=== PATIENT | male | born 1965 | race Caucasian/White ===

== ENCOUNTER 2021-01-03 03:16 | Day surgery (SDC) | payer BC, SELFPAY ==
[2021-01-03] VITALS (25 sets, daily range): BP systolic 135–231; BP diastolic 65–89; PULSE 43–63; RESP 11–21; TEMP 36–36.4; O2SAT 93–100
--- NOTE | ~2021-01-03 | CT_ITS ---
EXAMINATION: CT abdomen pelvis wo con DATE: 01/03/2021 03:46 INDICATION: Bilateral flank pain. TECHNIQUE: Computed tomography (CT) of the abdomen and pelvis was performed without intravenous contr ast. Automated exposure control and iterative reconstruction technique were employed. The dose-length product was 1642.75 mGy-cm. COMPARISON: CT abdomen and pelvis 01/30/18 FINDINGS: The visualized portions of the lung bases demonstrate minimal atelectasis on the left. No p leural effusion. The heart size is normal. There are coronary artery calcifications. No pericardial e ffusion. There are surgical changes of the stomach. There is a small sliding hiatal hernia. The liver is normal. The gallbladder is absent. The spleen, pancreas, and adrenal glands are normal. There is a 4 mm stone in the bulbar urethra. The bladder is distended. There is mild bilateral hydronephrosis and hydroureter. The prostate is mildly enlarged. There are no dilated loops of bowel. The appendix i s normal. There are no pathologically enlarged lymph nodes. There is no free intraperitoneal fluid. T here is a splenorenal portacaval shunt. There are old healed bilateral rib fractures. There are chron ic bilateral L5 pars defects. There is 9 mm anterolisthesis of L5 on S1. There is moderate lumbar spo ndylosis. There are bridging endplate osteophytes at multiple levels in the thoracic spine, consisten t with diffuse idiopathic skeletal hyperostosis (DISH). IMPRESSION: 1. 4 mm stone in the bulbar urethra. Distended bladder with mild bilateral hydronephrosis and hydrou reter. Reviewed, dictated and finalized at location A. IMPRESSION: 1. 4 mm stone in the bulbar urethra. Distended bladder with mild bilateral hyd ronephrosis and hydroureter.
--- NOTE | ~2021-01-03 | XR_ITS ---
EXAMINATION: XR fluoroscopy no charge EXAM DATE: 01/03/2021 12:48 INDICATION: Urethral dilation, catheter placement. TECHNIQUE: Fluoroscopy used during XR fluoroscopy no charge performed by Dr. Katty Esquivel MD. T he DAP for this procedure [id number]. FINDINGS: Urethra cannulated, dilated and a catheter identified in position. Correlate with procedu re note. IMPRESSION: Fluoroscopy used during urethral dilation, catheter placement. Reviewed, dictated and finalized at location A.
--- NOTE | 2021-01-03 03:40 | ED.GENADULT ---
HPI - General Adult General Chief complaint: Abdominal Pain Stated complaint: kidney stone Time Seen by Provider: 01/03/21 03:29 History of Present Illness HPI narrative: Patient 55-year-old gentleman who presents the emergency department with chief complaint of flank pain and inability to urinate. Patient reports he has history of kidney stones and states that he feels like he is passing a kidney stone. The patient reports he has had history of stones that it made it into his bladder but gets stuck at the urethra as he has a prior surgical procedure on his urethra that makes it more narrowed. The patient states that right now it feels as though he has a stone stuck right at the entrance to his urethra and states that his headache have a catheter placed before then sees urology for a cystoscopy. Related Data Allergies Allergy/AdvReac Type Severity Reaction Status Date / Time No Known Allergies Allergy Verified 01/03/21 03:21 Review of Systems Review of Systems: Narrative: A 10 system review of systems was completed on the patient and is negative except for what is stated in the HPI. Nursing and ancillary documentation was reviewed. PMFSH Past Medical History Medical History Elevated PSA Impaired fasting glucose Knee pain Obesity Reactive airway disease Family History Family History Mother Hypertension Family history of heart disease in male family member before age 55 Diabetes mellitus Family history of cardiovascular disease Father Family history of arthritis Family history of malignant neoplasm of testis Family history of malignant neoplasm Grandparent Family history of malignant neoplasm Other Cerebrovascular accident Family history of mental disorder Social History Social History Smoking status: Former smoker Alcohol intake: never Exam Narrative: Exam Narrative: GENERAL: Well-appearing, well-nourished, and in no acute distress. HEAD: Normocephalic, atraumatic. EYES: PERRLA and EOMI. ENT: Nares clear, no rhinorrhea or epistaxis. Mucous membranes moist. NECK: Supple. CHEST: Clear to auscultation. No respiratory distress. HEART: Regular rate and rhythm. No murmur heard. Normal peripheral pulses. ABDOMEN: Soft, nontender, nondistended, normal active bowel sounds. EXTREMITIES: Normal range of motion. No edema. SKIN: Warm, dry, no rash. NEURO: No focal deficits. Alert and oriented x3. PSYCH: Normal mood and affect. Course Course Emergency Course: Patient's bladder scanner showed greater than 600 mils of urine in his bladder. CT scan of the abdomen pelvis showed no evidence of obstructing kidney stone Attempt to place a Cuevas catheter was initially performed by the nurse without success I have attempted to place a catheter without success Vital Signs Vital signs: Vital Signs Temperature 36.2 C L 01/03/21 03:18 Pulse Rate 63 01/03/21 03:18 Respiratory Rate 16 01/03/21 03:18 Blood Pressure 231/89 H 01/03/21 03:18 Pulse Oximetry 100 01/03/21 03:18 Temperature 36.2 C L 01/03/21 03:18 Pulse Rate 59 L 01/03/21 06:46 Respiratory Rate 19 01/03/21 06:46 Blood Pressure 185/73 H 01/03/21 06:46 Pulse Oximetry 99 01/03/21 06:46 Medical Decision Making Vital Signs Vital Signs: Vital Signs Temperature 36.2 C L 01/03/21 03:18 Pulse Rate 63 01/03/21 03:18 Respiratory Rate 16 01/03/21 03:18 Blood Pressure 231/89 H 01/03/21 03:18 Pulse Oximetry 100 01/03/21 03:18 Temperature 36.2 C L 01/03/21 03:18 Pulse Rate 59 L 01/03/21 06:46 Respiratory Rate 19 01/03/21 06:46 Blood Pressure 185/73 H 01/03/21 06:46 Pulse Oximetry 99 01/03/21 06:46 Lab Data Result diagrams: 01/03/21 03:35 01/03/21 03:35 Labs: Lab Results
[2021-01-03 03:42] LABS: Basophils Absolute Auto 0.1 K/mm3 (0.0-0.1); Basophils Percent Auto 0.6 % (0.2-1.2); Eosinophils Absolute Auto 0.3 K/mm3 (0-0.3); Eosinophils Percent Auto 3.6 % (0-4.4); Hematocrit 30.3 % (42.0-52.0); Immature Granulocyte Absolute 0.01 K/mm3 (0.00-0.031); Immature Granulocyte Percent A 0.1 % (0-0.5); Lymphocytes Absolute Auto 2.77 K/mm3 (0.9-3.2); Lymphocytes Percent Auto 32.9 % (18.3-44.2); Mean Corpuscular HGB Conc 29.7 g/dl (32-36); Mean Corpuscular Hemoglobin 22.9 pg (26-34); Mean Corpuscular Volume 77.1 fl (80-100); Mean Platelet Volume 9.4 fl (7.4-10.4); Monocytes Percent Auto 11.9 % (2.6-8.5); Neutrophils Absolute Auto 4.3 K/mm3 (1.3-6.7); Neutrophils Percent Auto 50.9 % (45.5-73.1); Platelet Count Result 422 k/mm3 (150-375); Red Blood Count 3.93 M/mm3 (4.6-6.20); Red Cell Distribution Width 17.1 % (11.5-14.5); White Blood Count 8.4 K/mm3 (4.5-10.0)
[2021-01-03] MEDS: SODIUM CHLORIDE 0.9% IV 1,000 ML 999 ML IV CONT ×2 (03:48→05:07)
[2021-01-03] MEDS: KETOROLAC 30 MG/ML VIAL (*BKC) 15 MG IV PUSH (03:50)
[2021-01-03] MEDS: ONDANSETRON INJ 4 MG/2 ML VIAL IV PUSH (03:52)
[2021-01-03 03:53] LABS: Alanine Aminotransferase 19 U/L (4-50); Albumin Level 4.2 g/dL (3.5-5.1); Alkaline Phosphatase 93 U/L (38-126); Anion Gap 6 mmol/L (8-16); Aspartate Amino Transferase 34 U/L (17-59); Bilirubin,Total 0.3 mg/dL (0.2-1.3); Blood Urea Nitrogen 15 mg/dL (9-20); Calcium 8.6 mg/dL (8.4-10.2); Carbon Dioxide 27 mmol/L (22-30); Chloride 108 mmol/L (98-107); Estimated CRCL calculation 138 ml/min; Estimated Glomerular Filt Rate > 60; Glucose 99 mg/dL (75-110); Potassium 4.4 mmol/L (3.4-5.0); Sodium 141 mmol/L (137-145)
[2021-01-03] MEDS: MORPHINE SULFATE (*CRX) 4 MG/ML INJ IV PUSH ×3 (03:53→06:48)
--- NOTE | 2021-01-03 06:57 | WPDURCON ---
Assessment and Plan Assessment and plan (1) Acute urinary obstruction: Code(s): N13.9 - Obstructive and reflux uropathy, unspecified Status: Acute Assessment and Plan: This is a very pleasant 55-year-old gentleman with a history of urethral stricture who appears to have a calculus obstructing his narrowed bulbar urethra. -I discussed options, risks and alternatives were discussed with the patient and his . The patient will proceed to the operating room today for cystoscopy, urethral dilation and possible stone removal, and Cuevas catheter insertion. Risks of the procedure include but limited to infection, bleeding, pain, injury to surrounding structures, inability to place catheter can be for additional procedures discussed. Patient understands, had time to ask questions and agrees to proceed Urology Consult Note HPI Date Seen: 01/03/21 Primary Care Provider: James Hugo MD Consult Narrative Narrative: Pipo Mcintyre is a 55 year old male with a history of pediatric urethral reconstruction. He has a history of recurring urethral strictures. The patient also has a history of nephrolithiasis. The patient presents to the emergency department with abdominal pain. He was found to be in urinary retention. The emergency department attempted to place a Cuevas catheter unsuccessfully. Urology was called to evaluate the patient. Upon my inspection of his CT scan the patient does have a distended bladder and appears to have a urethral calcification. Currently the patient is able to void with a dribble, however feels that his bladder is still full. He denies nausea vomiting fevers or chills. Denies chest pain shortness of breath. Review of Systems Review of Systems: All systems reviewed & are unremarkable except as noted in HPI and below PMFSH Past Medical History Medical History Elevated PSA Impaired fasting glucose Knee pain Obesity Reactive airway disease Family History Family History Mother Hypertension Family history of heart disease in male family member before age 55 Diabetes mellitus Family history of cardiovascular disease Father Family history of arthritis Family history of malignant neoplasm of testis Family history of malignant neoplasm Grandparent Family history of malignant neoplasm Other Cerebrovascular accident Family history of mental disorder Social History Social History Smoking status: Former smoker Alcohol intake: never Meds Home Medications and Allergies Home Medications Medication Instructions Recorded Confirmed Type albuterol sulfate 90 mcg/actuation See Rx Instructions INHALATION Q4H 12/25/20 12/25/20 Rx aerosol inhaler #8 gm fluticasone furoate 100 1 inh INHALATION DAILY #60 ea 12/25/20 12/25/20 Rx mcg-vilanterol 25 mcg/dose inhalation powder Allergies Allergy/AdvReac Type Severity Reaction Status Date / Time No Known Allergies Allergy Verified 01/03/21 03:21 Vital Signs Vital Signs - 24 hr 01/03/21 03:18 01/03/21 03:57 01/03/21 04:02 Temperature 36.2 C L Pulse Rate 63 59 L 55 L Respiratory Rate 16 15 Blood Pressure 231/89 H 185/86 H 164/74 H Pulse Oximetry 100 99 97 01/03/21 05:02 01/03/21 05:32 01/03/21 05:47 Temperature Pulse Rate 56 L 54 L 57 L Respiratory Rate 15 14 13 Blood Pressure 163/76 H 169/77 H 155/73 H Pulse Oximetry 94 94 93 01/03/21 06:00 01/03/21 06:02 01/03/21 06:15 Temperature Pulse Rate 52 L 56 L 56 L Respiratory Rate 15 17 14 Blood Pressure 171/74 H Pulse Oximetry 93 94 94 01/03/21 06:17 01/03/21 06:31 01/03/21 06:46 Temperature Pulse Rate 54 L 54 L 59 L Respiratory Rate 13 13 19 Blood Pressure 142/76 H 156/72 H 185/73 H Pulse Oximetry 94 95 99 Exam Narrative: Exam Narrativ
--- NOTE | 2021-01-03 07:10 | PC.NURSE ---
patients urine and ordonez cath on hold per urology consult. Patient going to OR later this afternoon.
[2021-01-03] MEDS: ACETAMINOPHEN 500 MG TABLET 1000 MG PO (11:00)
[2021-01-03] MEDS: LACTATED RINGERS 1,000 ML 30 ML IV CONT (11:00)
--- NOTE | 2021-01-03 11:44 | WPDANESEPPF ---
Anes - Initial Pre Proc Eval Procedure: Operation Date: 01/03/21 12:00 Proposed Procedures p Cystoscopy, Urethral Dilatation with Stone Extraction - Katty Esquivel MD Date/Time: 01/03/21 11:44 Surgeon: Katty Esquivel MD Pre Op Diagnosis: kidney stone Patient Data Age: 55 Gender: M Height: 6 ft Weight: 124 kg Last Vital Signs Temp 96.8 F L 01/03/21 11:12 Pulse 50 L 01/03/21 11:12 Resp 18 01/03/21 11:12 BP 170/65 H 01/03/21 11:12 Pulse Ox 99 01/03/21 11:12 Allergies Allergy/AdvReac Type Severity Reaction Status Date / Time No Known Allergies Allergy Verified 01/03/21 11:08 Home Medications Medication Instructions Recorded Confirmed Type fluticasone furoate 100 1 inh INHALATION DAILY #60 ea 12/25/20 01/03/21 Rx mcg-vilanterol 25 mcg/dose inhalation powder albuterol sulfate [ProAir HFA] See Rx Instructions INHALATION Q4H 01/03/21 01/03/21 History PRN pantoprazole 40 mg PO DAILY 01/03/21 01/03/21 History Laboratory Tests 01/03/21 01/03/21 03:35 03:35 WBC 8.4 K/mm3 K/mm3 (4.5-10.0) RBC 3.93 M/mm3 L M/mm3 (4.6-6.20) Hgb 9.0 g/dL L g/dL (14.0-18.0) Hct 30.3 % L % (42.0-52.0) MCV 77.1 fl L fl (80-100) MCH 22.9 pg L pg (26-34) MCHC 29.7 g/dl L g/dl (32-36) RDW 17.1 % H % (11.5-14.5) Plt Count 422 k/mm3 H k/mm3 (150-375) MPV 9.4 fl fl (7.4-10.4) Immature Gran % (Auto) 0.1 % % (0-0.5) Neut % (Auto) 50.9 % % (45.5-73.1) Lymph % (Auto) 32.9 % % (18.3-44.2) [place] % (Auto) 11.9 % H % (2.6-8.5) Eos % (Auto) 3.6 % % (0-4.4) Baso % (Auto) 0.6 % % (0.2-1.2) Lymph # (Auto) 2.77 K/mm3 K/mm3 (0.9-3.2) [place] # (Auto) 1.0 K/mm3 H K/mm3 (0.1-0.6) Eos # (Auto) 0.3 K/mm3 K/mm3 (0-0.3) Baso # (Auto) 0.1 K/mm3 K/mm3 (0.0-0.1) Abs Immat Gran (auto) 0.01 K/mm3 K/mm3 (0.00-0.031) Absolute Neuts (auto) 4.3 K/mm3 K/mm3 (1.3-6.7) Absolute Nucleated RBC 0.0 K/mm3 K/mm3 (0.0-0.012) Nucleated RBC % 0.0 % % (0.0-0.2) Sodium 141 mmol/L mmol/L (137-145) Potassium 4.4 mmol/L mmol/L (3.4-5.0) Chloride 108 mmol/L H mmol/L (98-107) Carbon Dioxide 27 mmol/L mmol/L (22-30) Anion Gap 6 mmol/L L mmol/L (8-16) BUN 15 mg/dL mg/dL (9-20) Creatinine 0.70 mg/dL mg/dL (0.7-1.3) Estim Creat Clear Calc 138 ml/min ml/min Estimated GFR > 60 (59 - ) Glucose 99 mg/dL mg/dL (75-110) Calcium 8.6 mg/dL mg/dL (8.4-10.2) Total Bilirubin 0.3 mg/dL mg/dL (0.2-1.3) AST 34 U/L U/L (17-59) ALT 19 U/L U/L (4-50) Alkaline Phosphatase 93 U/L U/L (38-126) Total Protein 8.0 g/dL g/dL (6.3-8.2) Albumin 4.2 g/dL g/dL (3.5-5.1) Patient hx anesthesia problems: none Family hx anesthesia problems: none [facility] Past Medical History Medical History Elevated PSA Impaired fasting glucose Knee pain Obesity Reactive airway disease Family History Family History Mother Hypertension Family history of heart disease in male family member before age 55 Diabetes mellitus Family history of cardiovascular disease Father Family history of arthritis Family history of malignant neoplasm of testis Family history of malignant neoplasm Grandparent Family history of malignant neoplasm Other Cerebrovascular accident Family history of mental disorder Social History Social History Smoking status: Former smoker Alcohol intake: never Anes - Eval Final PreProcedure Day of Procedure 01/03/21 11:44 Patient weight: obese Heart: regular rate and rhythm Lungs: clear to auscultation Airway:
--- NOTE | 2021-01-03 12:05 | WPDHPUPDATE1 ---
History and Physical Update Update Date/Time: 01/03/21 12:05 Pt passed a stone since evaluation in ER - will proceed with cystoscopy and urethral dilation History and Physical has been reviewed, including an updated exam of the patient. There are NO changes in the patient's condition. Risks, benefits, and alternatives have been discussed and questions answered. Patient agrees to proceed with procedure.
[2021-01-03] MEDS: ceFAZolin 3 GM/D5W 100 ML 100 ML IVPB (12:15)
[2021-01-03] MEDS: LIDOCAINE HCL 2% GEL UROJET 10 ML PKG MUCOUS MEM (12:29)
--- NOTE | 2021-01-03 12:46 | P.OP_ITS ---
Procedure Note - Detailed Date of procedure: 01/03/21 Pre-op diagnosis: Urethral stricture Post-op diagnosis: same Procedure performed: Cystoscopy, urethral dilation, complex Cuevas catheter insertion Description of procedure: Informed consents obtained. Patient taken the operating room. Given preoperative IV antibiotics. Induced anesthesia. He was prepped and draped in normal sterile fashion in the dorsal lithotomy position. The patient had a reconstructed coronal hypospadias. The meatus was tight and was dilated with Tisha sounds from 16 to 20 F. I was then able to then pass a flexible cystoscope into the bulbar urethra where a 8 F bulbar urethral stricture was identified. I was able to pass a wire beyond this point and confirmed presence in the bladder with x-ray. We then dilated with implants urethral dilators from 8 to 20 F. at this point I then reinserted the flexible cystoscope, there was a 1cm bulbar urethral stricture that was now dilated the patient had bilobar prostatic hyperplasia. The bladder was normal in appearance. Over wire I then placed a 16 F [place] tip catheter. The patient was then taken to PACU in stable condition Anesthesia: MAC Surgeon: Katty Esquivel MD Drains: Yes Packing: No Pathology: none sent Complications: No immediate complications Condition: stable Disposition: PACU
== END 2021-01-03 14:36 | disposition home or self-care (01) ==
LOC: ANHED 06:57 → ANHSURGERY 07:10
PROVIDERS: Emergency Provider Emergency Medicine; PCP Family Medicine; Visit Provider Urology
PROC: 0T7D8ZZ Dilation of Urethra, Via Natural or Artificial Opening Endoscopic (ICD-10-PCS; CPT 52281; principal; 2021-01-03 12:00)
DX: N13.9 Obstructive and reflux uropathy, unspecified (principal); N35.911 Unspecified urethral stricture, male, meatal; N35.912 Unspecified bulbous urethral stricture, male; N40.0 Benign prostatic hyperplasia without lower urinary tract symptoms; J45.909 Unspecified asthma, uncomplicated; Z87.891 Personal history of nicotine dependence; Z79.51 Long term (current) use of inhaled steroids; E66.9 Obesity, unspecified; Z68.37 Body mass index [BMI] 37.0-37.9, adult
CPT/HCPCS: 52281; 36415; 74176; 80053; 85025; 96361; 96374; 96375; 96376; 99285; A9270; C1726; C1769; J0690; J1885; J2250; J2270; J2405; J2704; J3010; J7030; J7120

== ENCOUNTER 2021-03-05 17:15 | Outpatient (CLI) | payer BC, SELFPAY ==
--- NOTE | ~2021-03-05 | XR_ITS ---
XR knee RT 3V DATE: 03/05/2021 17:35 INDICATION: Fall at work. Anterior knee pain. Fracture of patella in 2010. TECHNIQUE: 4 views COMPARISON: 02/02/2008 right knee FINDINGS: Mild periarticular spurring of the patella consistent with osteoarthritis. Mild loss of height at medial compartment joint space. No fracture or dislocation or joint effusion. No periosteal reaction or bone destruction. No radiopaq ue intra-articular loose body or chondrocalcinosis. Femoral and popliteal and trifurcation artery calcifications. IMPRESSION: Mild osteoarthritis Arterial calcifications Reviewed, dictated and finalized at location A.
== END 2021-03-05 17:16 | disposition home or self-care (01) ==
PROVIDERS: PCP Family Medicine; Visit Provider Physician Assistant
DX: M25.569 Pain in unspecified knee (principal); M17.11 Unilateral primary osteoarthritis, right knee; I70.201 Unspecified atherosclerosis of native arteries of extremities, right leg
CPT/HCPCS: 73562

== ENCOUNTER 2021-10-17 15:50 | Emergency (ER) | payer BC, SELFPAY ==
--- NOTE | ~2021-10-17 | XR_ITS ---
EXAMINATION: XR ribs LT 2V w CXR 2V INDICATION: Left rib pain TECHNIQUE: Frontal and lateral views of the chest and 3 views of the left ribs were obtained. COMPARISON: 04/29/2015 FINDINGS: The lungs are free of acute opacities. There is no pleural effusion or pneumothorax. The ca rdiomediastinal silhouette is normal. There are surgical clips in the left upper quadrant. There is m oderate thoracic spondylosis. There appear to be nondisplaced fractures at the lateral aspects of the left fifth and sixth ribs. There is a possible nondisplaced fracture at the lateral aspect of the le ft ninth rib. IMPRESSION: 1. Likely nondisplaced fractures of the left fifth and sixth ribs and possible nondisplaced left nint h rib fracture. 2. No acute cardiopulmonary abnormality. Reviewed, dictated and finalized at location F. [employer] IMPRESSION: 1. Likely nondisplaced fractures of the left fifth and sixth ribs and possible nondisplaced left ninth rib fracture. 2. No acute cardiopulmonary abnormality.
[2021-10-17 16:01] VITALS: BP 153/60; PULSE 82; RESP 16; TEMP 37.7; O2SAT 96
[2021-10-17 16:56] VITALS: RESP 23; O2SAT 100
[2021-10-17] MEDS: HYDROcodone/acetaminophen (*CRX) 5-325 MG TABLET 1 TAB PO (17:38)
[2021-10-17 18:00] VITALS: BP 159/89; PULSE 92; RESP 16; O2SAT 100
--- NOTE | 2021-10-17 18:08 | ED.GENADULT ---
HPI - General Adult General Chief complaint: Unspecified Stated complaint: rib injury Time Seen by Provider: 10/17/21 16:30 Source: patient Mode of arrival: ambulatory Limitations: no limitations History of Present Illness HPI narrative: Patient is a 56-year-old male presented with chief complaint of pain to the left lateral and posterior ribs that began about 4 days ago after patient tripped over his dog and fell into a metal bar. Patient reports pain when he takes a deep breath or coughs. Patient reports discomfort when he lays on that side. Patient reports that his job requires lots of lifting, pulling and twisting and he has grown increasingly painful. Patient reports that he has asthma he uses his rescue inhaler but has not noted more wheezing or shortness of breath. Patient denies any other injuries. Related Data Home Medications Medication Instructions Recorded Confirmed albuterol sulfate [ProAir HFA] See Rx Instructions INHALATION Q4H 01/03/21 01/03/21 PRN pantoprazole 40 mg PO DAILY 01/03/21 01/03/21 Allergies Allergy/AdvReac Type Severity Reaction Status Date / Time No Known Allergies Allergy Verified 01/03/21 11:08 Review of Systems Review of Systems: CONSTITUTIONAL: Denies fever, chills, or sweats. EYES: Denies visual changes, redness, or discharge. ENT: Denies rhinorrhea, congestion, sore throat, or otalgia. CARDIOVASCULAR: Denies chest pain, palpitations, or edema. RESPIRATORY: Denies cough or dyspnea. GASTROINTESTINAL: Denies abdominal pain, nausea, vomiting, or diarrhea. GENITOURINARY: Denies dysuria or hematuria. SKIN: Denies rash or itching. MUSCULOSKELETAL: Reports rib pain denies back pain, joint pain, or myalgia. NEUROLOGIC: Denies headache, numbness, dizziness, or weakness. PSYCHIATRIC: Denies anxiety or depression. [facility] Past Medical History Medical History Elevated PSA Impaired fasting glucose Knee pain Obesity Reactive airway disease Family History Family History Mother Hypertension Family history of heart disease in male family member before age 55 Diabetes mellitus Family history of cardiovascular disease Father Family history of arthritis Family history of malignant neoplasm of testis Family history of malignant neoplasm Grandparent Family history of malignant neoplasm Other Cerebrovascular accident Family history of mental disorder Social History Social History Smoking status: Former smoker Alcohol intake: never Exam Narrative: GENERAL: Well-appearing, well-nourished, and in no acute distress. HEAD: Normocephalic, atraumatic. CHEST: Tenderness to palpation to the left lateral posterior lower ribs. clear to auscultation. No respiratory distress. No wheezes rales or rhonchi. Pain with deep breath and cough. Patient satting 100% on room air. HEART: Regular rate and rhythm. EXTREMITIES: Normal range of motion. No edema. SKIN: Warm, dry, no rash. NEURO: No focal deficits. Alert and oriented x3. PSYCH: Normal mood and affect. Course Vital Signs Vital signs: Vital Signs Temperature 99.8 F H 10/17/21 16:01 Pulse Rate 82 10/17/21 16:01 Respiratory Rate 16 10/17/21 16:01 Blood Pressure 153/60 H 10/17/21 16:01 Pulse Oximetry 96 10/17/21 16:01 Temperature 99.8 F H 10/17/21 16:01 Pulse Rate 92 10/17/21 18:00 Respiratory Rate 16 10/17/21 18:00 Blood Pressure 159/89 H 10/17/21 18:00 Pulse Oximetry 100 10/17/21 18:00 Medical Decision Making MDM Narrative Medical decision making narrative: Patient is afebrile. Patient is nontoxic. Patient has not had. Patient does have nondisplaced fractures. Gave patient instructions on rib fracture precautions. Patient also given a work note. Patient given Bricelyn for back pain. Patient instructed
== END 2021-10-17 18:00 | disposition home or self-care (01) ==
PROVIDERS: Emergency Provider Family Medicine; PCP Family Medicine
DX: S22.42XA Multiple fractures of ribs, left side, initial encounter for closed fracture (principal); J45.909 Unspecified asthma, uncomplicated; E66.9 Obesity, unspecified; Z68.34 Body mass index [BMI] 34.0-34.9, adult; Z87.891 Personal history of nicotine dependence; W01.198A Fall on same level from slipping, tripping and stumbling with subsequent striking against other object, initial encounter
CPT/HCPCS: 71046; 71100; 99283; A9270

== ENCOUNTER → 2021-11-02 00:51 | Outpatient (CLI) | payer BC, SELFPAY ==
[2021-11-03 23:19] LABS: SARS-CoV-2 RNA PCR Positive
== END ==
PROVIDERS: Physician Assistant; PCP Family Medicine; Visit Provider Family Medicine
DX: U07.1 COVID-19 (principal); R50.9 Fever, unspecified
CPT/HCPCS: C9803; U0003; U0005

== ENCOUNTER 2021-11-16 11:17 | Outpatient (CLI) | payer BC, SELFPAY ==
--- NOTE | ~2021-11-16 | XR_ITS ---
XR ribs LT 2V w CXR 2V DATE: 11/16/2021 11:38 INDICATION: Multiple left rib fractures TECHNIQUE: PA and lateral chest. 3 views of the left ribs. COMPARISON: 10/17/2021 PA and lateral chest and left RIBS FINDINGS: Normal heart size. No hilar or mediastinal enlargement. No pulmonary infiltrate or consolid ation, pleural effusion or pulmonary vascular congestion or pneumothorax. No recent left rib fracture is evident. There is degenerative spurring and minimal dextro scoliosis of the thoracic spine. IMPRESSION: No active cardiac pulmonary disease No recent left rib fracture is evident Reviewed, dictated and finalized at location A. [employer]
== END 2021-11-16 11:18 | disposition home or self-care (01) ==
LOC: ANHIMG 11:21
PROVIDERS: PCP Family Medicine; Visit Provider Physician Assistant
DX: S22.42XD Multiple fractures of ribs, left side, subsequent encounter for fracture with routine healing (principal)
CPT/HCPCS: 71046; 71100

== ENCOUNTER 2022-02-21 16:13 | Outpatient (CLI) | payer BC, SELFPAY ==
[2022-02-21 17:24] LABS: Prostate Specific Antigen 0.5 ng/mL (< OR = 4.0)
[2022-02-21 18:48] LABS: Creatinine Urine 314.8 mg/dL
[2022-02-21 18:51] LABS: MALB Creatinine Ratio 12.4 mg/g (0-30)
[2022-02-21 18:54] LABS: Iron 25 ug/dL (49-181)
[2022-02-21 19:05] LABS: Percent Iron Saturation 6 % (20-50)
[2022-02-21 19:17] LABS: Hemoglobin A1C 6.9 % (<5.7)
== END 2022-02-21 16:14 | disposition home or self-care (01) ==
LOC: ANHLAB 16:16
PROVIDERS: PCP Family Medicine; Visit Provider Family Medicine
DX: D64.9 Anemia, unspecified (principal); E11.9 Type 2 diabetes mellitus without complications; R97.20 Elevated prostate specific antigen [PSA]
CPT/HCPCS: 36415; 82043; 82607; 82746; 83036; 83540; 83550; 84153

== ENCOUNTER 2022-03-11 11:40 | Outpatient (CLI) | payer BC, SELFPAY ==
[2022-03-11 12:07] LABS: Basophils Percent Auto 0.5 % (0.2-1.2); Eosinophils Absolute Auto 0.2 K/mm3 (0-0.3); Eosinophils Percent Auto 3.1 % (0-4.4); Hematocrit 35.1 % (42.0-52.0); Hemoglobin 10.2 g/dL (14.0-18.0); Immature Granulocyte Absolute 0.01 K/mm3 (0.00-0.031); Immature Granulocyte Percent A 0.2 % (0-0.5); Lymphocytes Absolute Auto 1.84 K/mm3 (0.9-3.2); Lymphocytes Percent Auto 28.3 % (18.3-44.2); Mean Corpuscular HGB Conc 29.1 g/dl (32-36); Mean Corpuscular Hemoglobin 23.8 pg (26-34); Mean Platelet Volume 9.7 fl (7.4-10.4); Monocytes Absolute Auto 0.6 K/mm3 (0.1-0.6); Monocytes Percent Auto 9.2 % (2.6-8.5); Neutrophils Absolute Auto 3.8 K/mm3 (1.3-6.7); Neutrophils Percent Auto 58.7 % (45.5-73.1); Platelet Count Result 376 k/mm3 (150-375); Red Blood Count 4.28 M/mm3 (4.6-6.20); Red Cell Distribution Width 19.8 % (11.5-14.5); White Blood Count 6.5 K/mm3 (4.5-10.0)
[2022-03-11 12:50] LABS: Anisocytosis 1+ (NORMAL); Hypochromasia 1+ (NORMAL); Platelet Estimate Adequate (Adequate); Poikilocytosis 1+ (NORMAL)
== END 2022-03-11 11:41 | disposition home or self-care (01) ==
LOC: ANHLAB 11:43
PROVIDERS: PCP Family Medicine; Visit Provider Family Medicine
DX: D64.9 Anemia, unspecified (principal)
CPT/HCPCS: 36415; 85025

== ENCOUNTER 2022-07-29 10:49 | Outpatient (CLI) | payer BC, SELFPAY ==
[2022-07-29 18:59] LABS: Basophils Percent Auto 0.5 % (0.2-1.2); Eosinophils Absolute Auto 0.3 K/mm3 (0-0.3); Eosinophils Percent Auto 4.1 % (0-4.4); Hematocrit 38.7 % (42.0-52.0); Hemoglobin 11.6 g/dL (14.0-18.0); Immature Granulocyte Absolute 0.01 K/mm3 (0.00-0.031); Immature Granulocyte Percent A 0.1 % (0-0.5); Lymphocytes Absolute Auto 2.04 K/mm3 (0.9-3.2); Mean Corpuscular Hemoglobin 26.7 pg (26-34); Mean Platelet Volume 9.9 fl (7.4-10.4); Monocytes Absolute Auto 0.8 K/mm3 (0.1-0.6); Monocytes Percent Auto 11.4 % (2.6-8.5); Neutrophils Absolute Auto 4.1 K/mm3 (1.3-6.7); Neutrophils Percent Auto 55.9 % (45.5-73.1); Platelet Count Result 421 k/mm3 (150-375); Red Blood Count 4.35 M/mm3 (4.6-6.20); Red Cell Distribution Width 16.5 % (11.5-14.5); White Blood Count 7.3 K/mm3 (4.5-10.0)
[2022-07-29 19:30] LABS: Hemoglobin A1C 8.3 % (<5.7)
[2022-07-29 20:09] LABS: Alanine Aminotransferase 29 U/L (6-50); Albumin Level 4.4 g/dL (3.5-5.1); Alkaline Phosphatase 98 U/L (38-126); Anion Gap 9 mmol/L (8-16); Aspartate Amino Transferase 36 U/L (17-59); Bilirubin,Total 0.6 mg/dL (0.2-1.3); Blood Urea Nitrogen 13 mg/dL (9-20); Calcium 9.1 mg/dL (8.4-10.2); Carbon Dioxide 21 mmol/L (22-30); Chloride 107 mmol/L (98-107); Cholesterol 146 mg/dL (0-200); Estimated Glomerular Filt Rate > 60; Glucose 155 mg/dL (65-110); HDL Direct 41 mg/dL; Potassium 4.1 mmol/L (3.4-5.0); Sodium 137 mmol/L (137-145); Triglycerides 83 mg/dL (<150)
[2022-07-29 20:20] LABS: LDL Cholesterol Direct 80 mg/dL
[2022-07-29 20:34] LABS: Vitamin D 25 Hydroxy 49.6 ng/mL
[2022-07-29 21:14] LABS: Folic Acid 7.7 ng/mL (2.76->20)
== END 2022-07-29 10:50 | disposition home or self-care (01) ==
PROVIDERS: PCP Emergency Medicine; Visit Provider Emergency Medicine
DX: R73.01 Impaired fasting glucose (principal); E66.01 Morbid (severe) obesity due to excess calories; Z98.84 Bariatric surgery status; D50.9 Iron deficiency anemia, unspecified
CPT/HCPCS: 36415; 80053; 80061; 82306; 82607; 82746; 83036; 85025

== ENCOUNTER → 2022-08-06 12:49 | Outpatient (CLI) | payer BC, SELFPAY ==
--- NOTE | ~2022-08-06 | US_ITS ---
EXAMINATION: US carotid duplex BI DATE: 08/06/2022 13:14 INDICATION: Right-sided subjective visual disturbance. Dizziness and giddiness. TECHNIQUE: Grayscale, color Doppler, and pulsed Doppler images of the cervical carotid arteries were obtained. The degree of vessel stenosis is placed in one of the following categories: normal, <50%, 5 0-69%, >=70% but less than near-occlusion, near-occlusion, or total occlusion. Note that percent sten osis relative to normal distal artery lumen diameter is indirectly measured from velocity measurement s as described by Cesario, et al. Radiology 2003; [id number]. COMPARISON: None. FINDINGS: RIGHT: The right common carotid artery (CCA) peak systolic velocity (PSV) is 98 cm/s. The right internal car otid artery (ICA) PSV is 76 cm/s. The right ICA end-diastolic velocity (EDV) is 19 cm/s. The right IC A/CCA PSV ratio is 0.8. Grayscale and color Doppler images yield an estimate of <50% diameter reducti on from plaque in the ICA. The external carotid artery (ECA) PSV is 147 cm/s. There is antegrade flow in the right vertebral artery. LEFT: The left CCA PSV is 104 cm/s. The left ICA PSV is 111 cm/s. The left ICA EDV is 25 cm/s. The left ICA /CCA PSV ratio is 1.1. Grayscale and color Doppler images yield an estimate of <50% diameter reductio n from plaque in the ICA. The ECA PSV is 131 cm/s. There is antegrade flow in the left vertebral tej ry. IMPRESSION: 1. <50% stenosis in the right internal carotid artery. 2. <50% stenosis in the left internal carotid artery. Reviewed, dictated and finalized at location A.
== END ==
PROVIDERS: PCP Emergency Medicine; Visit Provider Emergency Medicine
DX: R42 Dizziness and giddiness (principal); I65.23 Occlusion and stenosis of bilateral carotid arteries
CPT/HCPCS: 93880

== ENCOUNTER 2022-10-03 09:37 | Outpatient (CLI) | payer BC, SELFPAY ==
[2022-10-03 20:42] LABS: Hemoglobin A1C 8.5 % (<5.7)
[2022-10-03 20:46] LABS: Basophils Percent Auto 0.4 % (0.2-1.2); Eosinophils Absolute Auto 0.1 K/mm3 (0-0.3); Eosinophils Percent Auto 1.6 % (0-4.4); Hematocrit 41.4 % (42.0-52.0); Hemoglobin 12.9 g/dL (14.0-18.0); Immature Granulocyte Absolute 0.02 K/mm3 (0.00-0.031); Immature Granulocyte Percent A 0.2 % (0-0.5); Lymphocytes Absolute Auto 1.94 K/mm3 (0.9-3.2); Mean Corpuscular HGB Conc 31.2 g/dl (32-36); Mean Corpuscular Hemoglobin 26.8 pg (26-34); Mean Corpuscular Volume 85.9 fl (80-100); Mean Platelet Volume 10.1 fl (7.4-10.4); Monocytes Absolute Auto 0.8 K/mm3 (0.1-0.6); Monocytes Percent Auto 9.5 % (2.6-8.5); Neutrophils Absolute Auto 5.2 K/mm3 (1.3-6.7); Neutrophils Percent Auto 64.3 % (45.5-73.1); Platelet Count Result 436 k/mm3 (150-375); Red Blood Count 4.82 M/mm3 (4.6-6.20); Red Cell Distribution Width 14.2 % (11.5-14.5); White Blood Count 8.1 K/mm3 (4.5-10.0)
[2022-10-03 20:47] LABS: Alanine Aminotransferase 31 U/L (6-50); Albumin Level 4.2 g/dL (3.5-5.1); Alkaline Phosphatase 92 U/L (38-126); Anion Gap 8 mmol/L (8-16); Aspartate Amino Transferase 52 U/L (17-59); Bilirubin,Total 0.5 mg/dL (0.2-1.3); Blood Urea Nitrogen 15 mg/dL (9-20); Calcium 8.9 mg/dL (8.4-10.2); Carbon Dioxide 26 mmol/L (22-30); Chloride 103 mmol/L (98-107); Estimated Glomerular Filt Rate > 60; Glucose 145 mg/dL (65-110); Potassium 4.1 mmol/L (3.4-5.0); Sodium 137 mmol/L (137-145)
[2022-10-03 20:54] LABS: Iron 40 ug/dL (49-181)
[2022-10-03 21:03] LABS: Percent Iron Saturation 9 % (20-50)
[2022-10-03 21:22] LABS: Ferritin 8.17 ng/mL (11.1-264)
[2022-10-03 21:31] LABS: Microalbumin Urine Random 101.4 mg/L (0-16.7)
[2022-10-03 21:58] LABS: Creatinine Urine 423.1 mg/dL
== END 2022-10-03 09:38 | disposition home or self-care (01) ==
LOC: ANHGOSHLAB 09:39
PROVIDERS: PCP Emergency Medicine; Visit Provider Emergency Medicine
DX: E11.9 Type 2 diabetes mellitus without complications (principal); D50.9 Iron deficiency anemia, unspecified
CPT/HCPCS: 36415; 80053; 82043; 82728; 83036; 83540; 83550; 85025

== ENCOUNTER 2024-06-03 10:48 | Outpatient (CLI) | payer BC, SELFPAY ==
[2024-06-03 13:25] LABS: Basophils Absolute Auto 0.1 K/mm3 (0.0-0.1); Basophils Percent Auto 0.7 % (0.2-1.2); Eosinophils Absolute Auto 0.2 K/mm3 (0-0.3); Eosinophils Percent Auto 2.8 % (0-4.4); Hematocrit 35.1 % (42.0-52.0); Hemoglobin 10.6 g/dL (14.0-18.0); Immature Granulocyte Absolute 0.02 K/mm3 (0.00-0.031); Immature Granulocyte Percent A 0.3 % (0-0.5); Lymphocytes Percent Auto 27.6 % (18.3-44.2); Mean Corpuscular HGB Conc 30.2 g/dl (32-36); Mean Corpuscular Hemoglobin 25.5 pg (26-34); Mean Corpuscular Volume 84.6 fl (80-100); Mean Platelet Volume 9.7 fl (7.4-10.4); Monocytes Absolute Auto 0.9 K/mm3 (0.1-0.6); Monocytes Percent Auto 11.7 % (2.6-8.5); Neutrophils Absolute Auto 4.4 K/mm3 (1.3-6.7); Neutrophils Percent Auto 56.9 % (45.5-73.1); Platelet Count Result 426 k/mm3 (150-375); Red Blood Count 4.15 M/mm3 (4.6-6.20); Red Cell Distribution Width 17.5 % (11.5-14.5); White Blood Count 7.6 K/mm3 (4.5-10.0)
[2024-06-03 13:38] LABS: Magnesium 2.1 mg/dL (1.6-2.3)
[2024-06-03 13:57] LABS: Microalbumin Urine Random 35.4 mg/L (0-16.7)
[2024-06-03 13:59] LABS: Alanine Aminotransferase 23 U/L (6-50); Albumin Level 4.2 g/dL (3.5-5.1); Alkaline Phosphatase 99 U/L (38-126); Anion Gap 8 mmol/L (4-12); Aspartate Amino Transferase 56 U/L (17-59); Bilirubin,Total 0.7 mg/dL (0.2-1.3); Blood Urea Nitrogen 17 mg/dL (9-20); Calcium 9.2 mg/dL (8.4-10.2); Carbon Dioxide 29 mmol/L (22-30); Chloride 103 mmol/L (98-107); Cholesterol 140 mg/dL (0-200); Estimated Glomerular Filt Rate > 60; Glucose 168 mg/dL (65-110); HDL Direct 43 mg/dL; Potassium 4.7 mmol/L (3.4-5.0); Sodium 140 mmol/L (137-145); Triglycerides 104 mg/dL (<150)
[2024-06-03 14:11] LABS: Hemoglobin A1C 9.4 % (<5.7)
[2024-06-03 14:14] LABS: LDL Cholesterol Direct 75 mg/dL
[2024-06-03 14:35] LABS: Thyroid Stimulating Hormone Reflex 0.709 uIU/mL (0.465-4.68)
[2024-06-03 14:42] LABS: Folic Acid > 20.0 ng/mL (2.76->20)
[2024-06-03 15:52] LABS: Creatinine Urine 364.4 mg/dL; MALB Creatinine Ratio 9.7 mg/g (0-30)
== END 2024-06-03 10:49 | disposition home or self-care (01) ==
LOC: ANHGOSHLAB 10:51
PROVIDERS: PCP Emergency Medicine; Visit Provider Emergency Medicine
DX: E11.69 Type 2 diabetes mellitus with other specified complication (principal); E66.9 Obesity, unspecified; D64.9 Anemia, unspecified; K91.2 Postsurgical malabsorption, not elsewhere classified; Z98.84 Bariatric surgery status; Z13.21 Encounter for screening for nutritional disorder
CPT/HCPCS: 36415; 80053; 80061; 82043; 82607; 82746; 83036; 83735; 84443; 85025

== ENCOUNTER 2025-07-11 08:43 | Outpatient (CLI) | payer BC, SELFPAY ==
--- NOTE | ~2025-07-11 | NM_ITS ---
EXAMINATION: NM abiodun stress w perfusion DATE: 07/11/2025 11:40 INDICATION: Abnormal EKG TECHNIQUE: Rest images were obtained following intravenous administration of 10.6 mCi Tc99m tetrofosmin (Myoview). The patient was infused intravenously with Lexiscan (Regadenoson). Then, 33.7 mCi Tc99m tetrofosmin (Myoview) was administered intravenously, and stress images were obtained. Data was cass nstructed into short axis and horizontal and vertical long axis SPECT images. Gated SPECT images were also obtained. COMPARISON: None. FINDINGS: There is no definite reversible or fixed perfusion abnormality to suggest ischemia or infarction. There is normal left ventricular chamber size, wall motion and ejection fraction. Left ventricular ejection fraction measures 66%. IMPRESSION: 1. Normal myocardial perfusion at rest and during stress. 2. Left ventricular ejection fraction measuring 66%. Reviewed, dictated and finalized at location A.
--- NOTE | 2025-07-11 08:49 | EST_ITS ---
Patient Info Name: Pipo Mcintyre Age: 60 years : 1965 Gender: Male Ht: 73 in Wt: 260 lbs BSA: 2.50 m2 HR: 52 bpm BP: 148 / 69 mmHg Exam Date: 07/11/2025 8:49 AM Patient Status: O Admit Date: 07/11/2025 Exam Type: CA stress abiodun w NM A regadenoson stress test was performed. Staff Referring Physician: Raulito Borges Attending Provider: Raulito Borges Exercise Technologist: Cristel Palomo Exercise Physician: Reji Martines DO Summary 1. 1. Negative lexiscan stress test for ischemic ST changes by ECG criteria. 2. 2. Baseline hypertension. 3. 3. Nuclear scan to follow and will be reported separately. Please correlate with it. 4. 4. Patient informed of the above results. Protocol: Lexiscan Stress ECG Details Stage: REST Duration (min): 1 min : 57 sec HR (bpm): 53 SBP (mmHg): 148 DBP (mmHg): 69 Stage: REST Duration (min): 9 min : 53 sec HR (bpm): 51 SBP (mmHg): 148 DBP (mmHg): 69 Stage: STAGE 1 Duration (min): 1 min : 0 sec HR (bpm): 60 SBP (mmHg): 144 DBP (mmHg): 75 Stage: RECOVERY Duration (min): 1 min : 0 sec HR (bpm): 72 SBP (mmHg): 144 DBP (mmHg): 75 Stage: RECOVERY Duration (min): 2 min : 0 sec HR (bpm): 59 SBP (mmHg): 144 DBP (mmHg): 75 Stage: RECOVERY Duration (min): 3 min : 0 sec HR (bpm): 59 SBP (mmHg): 133 DBP (mmHg): 71 Stage: RECOVERY Duration (min): 3 min : 4 sec HR (bpm): 58 SBP (mmHg): 133 DBP (mmHg): 71 Rest HR: 51 bpm Peak HR: 72 bpm Rest Sys BP: 148 mmHg Peak Sys BP: 144 mmHg Max Pred HR: 159 bpm % Max Pred HR: 45 % Target HR: 135 bpm Max RPP: 10,368 bpm*mmHg Termination Reason: Completed protocol Cardiac Symptoms: Chest tightness Total Time: 1 min : 0 sec Rest Amos BP: 69 mmHg Peak Amos BP: 75 mmHg Total Dose: 0.4 mg Resting ECG Sinus bradycardia, early precordial R/S transition. Stress ECG No ST changes. Arrhythmias None. Report Signatures
--- OUTSIDE RECORDS SUMMARY | 2025-07-11 09:22 | XMS_ITS | Encounter Summary ---
Author Organization [facility] Address [address] [place] [address] Phone Care Team Providers Care Wagon Washer Name Role Phone James Hugo MD Primary Care Provider [phone]- [phone] Encounter Details Date Type Department Care Team (Latest Contact Info) Description 02/14/2022 Transcribe Orders [facility] Patient Access Admitting [address] [place] [id number] Jay Khan MD [address] [place] [address] Anemia, unspecified type (Primary Dx) Social History Tobacco Use Types Packs/Day Years Used Date Smoking Tobacco: Never Assessed Sex and Gender Information Value Date Recorded Sex Assigned at Not on file Legal Sex Male 2:09 PM CDT Gender Identity Not on file Sexual Orientation Not on file COVID-19 Exposure Response Date Recorded In the last 10 days, have yo u been in contact with someone who was confirmed or suspected to have Coronavirus/COVID-19? No / Unsure 02/14/2022 9:37 AM CDT documented as of this encounter Plan of Treatment Not on file documented as of this encounter Visit Diagnoses Diagnosis Anemia, unspecified type- Primary documented in this encounter Care Teams Wagon Washer Relationship Specialty Start Date End Date James Hugo MD [address] [place] [address] PCP - General Family Medicine 02/12/22 documented as of this encounter
--- OUTSIDE RECORDS SUMMARY | 2025-07-11 09:22 | XMS_ITS | Clinical Summary ---
Author Organization [facility] Address [address] [address] [place] [address] Phone Care Team Providers Care Hand Mold Maker Name Role Phone Osman, External Provider Primary Care Provider Un available Allergies No known active allergies Medications pantoprazole (PROTONIX) 20 mg Tablet, Delayed Release (E.C.) Take 2 Tablets (40 mg) by mouth daily. 60 Tablet 2 9 Active Additional Information Patient taking differently: 20 mgOralTWO TIMES DAILY, Informant: Patient, Reported on 06/11/2024 acetaminophen (TYLENOL) 500 mg tablet Take 1,000 mg by mouth every 6 hours as needed. Active chlorhexidine gluconate 0.12 % Mouthwash 15 mL by Mouth/Throat route 2 times daily. Active sucralfate (CARAFATE) 100 mg/mL suspension Take 1 Gram by mouth every 6 hours. Active pantoprazole (PROTONIX) 40 mg Tablet, Delayed Release (E.C.) Take 1 Tablet (40 mg) by mouth daily. 60 Tablet 2 9 Active HYDROcodone-whit taminophen (HYCET) 7.5-325 mg/15 mL SolutionIndicat ions:Cholecysti tis Take 15 mL by mouth every 6 hours as needed for Pain. Max Daily Amount: 60 mL 280 mL 10/04/2019 4:41 PM TAP OUT OPERATOR 9 Active lisinopriL (PRINIVIL) 10 mg tablet Take 1 Tablet by mouth every 24 hours. Active Active Problems No known active problems Encounters Date Type Department Care Team Description 05/04/2025 External Device Data STL ABSTRACTION Provider, Abstract from Last 3 Months Social History Tobacco Use Types Packs/Day Years Used Date Smoking Tobacco: Never Smokeless Tobacco: Never Alcohol Use Standard Drinks/Week Comments Yes 0 (1 standard drink = 0.6 oz pur e alcohol) rarely Feeling Safe Answer Date Recorded Are you in a relationship wi th someone who hurts you emotionally and/or physically? No 06/11/2024 Sex and Gender Information Value Date Recorded Sex Assigned at Not on file Legal Sex Male 9:29 PM CDT Gender Identity Not on file Sexual Orientation Not on file Last Filed Vital Signs Vital Sign Reading Time Taken Comments Blood Pressure 152/74 06/11/2024 8:15 AM CDT Pulse 57 06/11/2024 8:15 AM CDT Temperature 36.1 C (97 F) 06/11/2024 8:03 AM CDT Respiratory Rate 22 06/11/2024 8:15 AM CDT Oxygen Saturation 98% 06/11/2024 8:15 AM CDT Inhaled Oxygen Concentration - - Weight 126.1 kg (278 lb) 06/11/2024 6:46 AM CDT Height 185.4 cm (6' 1) 06/11/2024 6:46 AM CDT Body Mass Index 36.68 06/11/2024 6:46 AM CDT Plan of Treatment Health Maintenance Due Date Last Done Comments DTAP/TDAP/TD VACCINES (1 - Tdap) 02/07/1983 FIT-DNA Q 3 years 02/07/2009 FIT/FOBT Q 1 year 02/07/2009 Flex Sig/CT Colonography Q 5 years 02/07/2009 ZOSTER VACCINE (1 of 2) 02/07/2014 INFLUENZA VACCINE (#1) 2025 COLORECTAL SCREENING 01/29/2029 01/29/2019, 01/29/2019, 01/29/2019, Additional history exists Colorectal Cancer Screening 01/29/2029 RSV VACCINE (60+ or ) (1 - 1-dose 75+ series) 02/07/2039 Medical Devices Implanted Type Area Slip Cover Maker Device Identifier Shelf Expiration Date Model / Serial / Lot Lu Trevino Ml [id number] - Csc - [id number] Implanted:Qty: 2 on 10/04/2019 by Kendall Lee MD at [facility] TELEFLEX- WECK CLOSURE SYS [id number] / / Procedures Procedure Name Priority Date/Time Associated Diagnosis Comments COLONOSCOPY REPORT 01/29/2019 12 :17 PM CDT from Last 3 Months or Most Recently Relevant to Health Maintenance Results * COLONOSCOPY REPORT (01/29/2019 12:17 PM CDT) Narrative Procedure Note Kendall Lee MD - 01/29/2019 12:17 PM CDT [facility] Endoscopy Patient Name: Sandy Mcintyre Procedure Date: 01/29/2019 Date of : 1965 Admit Type: Outpatient Attending MD: Kendall Lee MD Procedure: Colonoscopy Indications: Screening for colorectal malignant neoplasm, Incidental - Iron deficiency anemia secondary to chronic blood loss Providers: Kendall Lee MD Referring MD: James Hugo MD Medicines: Monitored Anesthesia Care Complications: No immediate complications. Procedure: Informed consent was obtained for the procedure, including moderate sedation after risks were discussed. Based on the pre-procedure assessment, including review of the patient's medical history, medications, allergies, and review of systems, the patient was deemed to be an appropriate candidate for sedation. A timeout was performed. Continuous ECG monitoring, pulse oximetry, blood pressure monitoring, and direct observation were performed. The Colonoscope was introduced through the anus and advanced to the cecum, identified by appendiceal orifice and ileocecal valve. The colonoscopy was performed without difficulty. The patient tolerated the procedure well. Findings: The perianal and digital rectal examinations were normal. The entire examined colon appeared normal on direct and retroflexion views. Impression: - The entire examined colon is normal on direct and retroflexion views. - No specimens collected. Recommendation: - Discharge patient to home (ambulatory). - Discharge patient to home (ambulatory). - Return to my office as previously scheduled. - Repeat colonoscopy in 10 years for screening purposes. Procedure Code(s): --- Professional --- 90909, Colonoscopy, flexible; diagnostic, including collection of specimen(s) by brushing or washing, when performed (separate procedure) CPT copyright 2016 [employer]. All rights reserved. The codes documented in this report are preliminary and upon medical technologist generalist review may be revised to meet current compliance requirements. Kendall Lee MD 01/29/2019 12:17:47 PM Number of Addenda: [phone] , [place] [address] Kendall Lee MD GI PROCEDURE ORDERABLES Fi nal Result from Last 3 Months or Most Recently Relevant to Health Maintenance Insurance [employer] BLUE ACCESS/TRUE BLUE PPO [employer] BLUE ACCESS/TRUE BLUE PPO RX EXPRESS SCRIPTS Express RX [facility] [employer] Advance Directives For more information, please contact: [phone] * Full Code (Latest Code Status on File) Date Activated Date Inactivated Comments 10/04/2019 11:42 AM 10/04/2019 7:57 PM * Full Code Date Activated Date Inactivated Comments 01/07/2019 11:32 AM 01/07/2019 4:58 PM * Full Code Date Activated Date Inactivated Comments 12/17/2018 1:07 PM 12/17/2018 6:41 PM Care Teams Hand Mold Maker Relationship Specialty Start Date End Date Lucille Brewer Provider PCP - General 12/15/18
--- OUTSIDE RECORDS SUMMARY | 2025-07-11 09:22 | XMS_ITS | Clinical Summary ---
Author Organization [facility] Address [address] [place] [address] Phone Care Team Providers Care Product Line Manager Name Role Phone James Hugo MD Primary Care Provider [phone] Social History Tobacco Use Types Packs/Day Years Used Date Smoking Tobacco: Never Assessed Sex and Gender Information Value Date Recorded Sex Assigned at Not on file Legal Sex Male 2:09 PM CDT Gender Identity Not on file Sexual Orientation Not on file Plan of Treatment Health Maintenance Due Date Last Done Comments Hepatitis C Virus (HCV) Screening 1965 TdaP Immunization 1965 Cologuard 02/07/2009 Colonoscopy 02/07/2009 Colorectal Cancer Screening 02/07/2009 Immunochemical Fecal Occult Blood 02/07/2009 Pneumococcal Immunization (5 0+ years) (1 of 1 - PCV) 02/07/2014 Zoster Immunization (1 of 2) 02/07/2014 Influenza Immunization (#1) 2025 SARS-COV-2 Immunization ( - 2023- season) 2025 Respiratory Syncytial Virus (RSV) Immunization (Adult) (1 - 1-dose 75+ series) 02/07/2039 Hepatitis B Immunization Aged Out No longer eligible based on patient's age to complete this topic Human Papillomavirus (HPV) Immunization Aged Out No longer eligible b ased on patient's age to complete this topic Meningococcal Immunization (ACWY) Aged Out No longer eligible based on patient's age to complete this topic Rotavirus Immunization Aged Out No lo nger eligible based on patient's age to complete this topic Care Teams Product Line Manager Relationship Specialty Start Date End Date James Hugo MD [address] [place] [address] PCP - General Family Medicine 02/12/22
--- OUTSIDE RECORDS SUMMARY | 2025-07-11 09:22 | XMS_ITS | Clinical Summary ---
Author Organization [facility] [address] Address [address] [place] [address] Care Team Providers Care Primary Education Professor Name Role Phone Unknown, Notinfile Primary Care Provider Unavail able Allergies No known active allergies Medications semaglutide (Ozempic) 1 mg/dose (4 mg/3 mL) pen injector injection Inject 1 mg under the skin every 7 days On Sundays Active lisinopriL (PRINIVIL,ZESTRI L) 40 mg tablet Take 1 tablet (40 mg total) by mouth daily Active pantoprazole DR (PROTONIX) 40 mg EC tablet Take 1 tablet (40 mg total) by mouth daily Active atorvastatin (LIPITOR) 20 mg tablet Take 1 tablet (20 mg total) by mouth every evening Active cyanocobalamin (Vitamin B-12) 1,000 mcg tabletIndication s:Prevention of Vitamin B12 Deficiency Take 1 tablet (1,000 mcg total) by mouth daily Active multivit-min/fol ic/vit K/lycop (MEN'S MULTIVITAMIN ORAL) Take by mouth daily Active iron fum/vit C/ascorbate sod (IRON PLUS VITAMIN C ORAL) Take by mouth daily Active fluticasone furoate-vilanter oL (BREO ELLIPTA) 100-25 mcg/dose diskus inhaler Inhale 1 puff daily Rinse mouth with water after use. Do not swallow. Active albuterol HFA (PROVENTIL HFA,VENTOLIN HFA,PROAIR HFA) 90 mcg/actuation inhaler Inhale 2 puffs every 6 (six) hours as needed for wheezing Active sulfamethoxazole -trimethoprim (BACTRIM DS) 800-160 mg per tablet Take 1 tablet (160 mg of trimethoprim total) by mouth 2 (two) times a day 14 tablet 5 Active traMADoL (ULTRAM) 50 mg tablet Take 1 tablet (50 mg total) by mouth every 6 (six) hours as needed for pain 10 tablet 5 Active bacitracin 500 unit/gram ointment Apply topically 2 (two) times a day 15 g 3 5 Active Active Problems Problem Noted Date Diagnosed Date Stricture, urethra 11/16/2024 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 Surgical History Surgery Date Site/Laterality Comments GASTRIC BYPASS 10/20/2009 - 10/19/2010 PENIS SURGERY 10/20/2006 - 10/19/2007 RHINOPLASTY CARPAL TUNNEL RELEASE Right ROTATOR CUFF REPAIR Right x 2 BICEPS TENDON REPAIR Right CHOLECYSTECTOMY ESOPHAGOGASTRODUODENOSCOPY patients states a couple of times to stretch the esophagus Medical History Medical History Date Comments Delayed emergence from general anesthesia Hypertension Asthma GERD (gastroesophageal reflux disease) Type 2 diabetes mellitus Anemia Sleep apnea pt stated resolv ed after bariatric surgery Family History Medical History Relation Name Comments Arthritis Father Family history of arthritis - (Added by TW Conv) Cancer Father Family history of malignant neoplasm - (Added by TW Conv) Gout Father Family history of gout - (Added by TW Conv) Heart disease Father Family history of cardiac disorder - (Added by TW Conv) Stroke Father Family history of cerebrovascular accident - (Added by TW Conv) Gout Mother Family history of gout - (Added by TW Conv) Heart disease Mother Family history of cardiac disorder - (Added by TW Conv) Stroke Mother Family history of cerebrovascular accident - (Added by TW Conv) Relation Name Status Comments Father Mother Social History Tobacco Use Types Packs/Day Years Used Date Smoking Tobacco: Never Smokeless Tobacco: Never Tobacco Cessation:Counseling Given: Not Answered AUDIT-C Answer Date Recorded Frequency of Alcohol Consumption Not on file 12/07/2024 Q2: How many drinks containi ng alcohol do you have on a typical day when you are drinking? Patient does not drink Frequency of Binge Drinking Not on file 11/20 Personal Safety Answer Date Recorded Have you ever been in or are you currently in a harmful physical or emotional relationship or is someone making you feel afraid or unsafe? Denies 12/14/2024 Sex and Gender Information Value Date Recorded Sex Assigned at Not on file Legal Sex Male 4:40 AM CONTRACTS ATTORNEY Gender Identity Not on file Sexual Orientation Not on file Obstetrics History Last Filed Vital Signs Vital Sign Reading Time Taken Comments Blood Pressure 157/83 12/14/2024 1:37 PM CONTRACTS ATTORNEY Pulse 58 12/14/2024 1:37 PM CONTRACTS ATTORNEY Temperature 36.3 C (97.4 F) 12/14/2024 1:37 PM CONTRACTS ATTORNEY Respiratory Rate 18 12/14/2024 1:37 PM CONTRACTS ATTORNEY Oxygen Saturation 94% 12/14/2024 1:37 PM CONTRACTS ATTORNEY Inhaled Oxygen Concentration - - Weight 119.2 kg (262 lb 12.6 oz) 12/14/2024 7:25 AM CONTRACTS ATTORNEY Height 185.4 cm (6' 1) 12/14/2024 7:25 AM CONTRACTS ATTORNEY Body Mass Index 34.67 12/14/2024 7:25 AM CONTRACTS ATTORNEY Plan of Treatment Health Maintenance Due Date Last Done Comments Colon Cancer Screening-Colonoscopy 1965 Depression Screening 1965 Hepatitis C Screening 1965 Prostate Cancer Screening-PSA 1965 DTaP/Tdap/Td Vaccine (1 - Tdap) 02/07/1975 Hepatitis B Screening 02/07/1982 Regular Well Visit/Exam 18-64 02/07/1982 Zoster Vaccine (1 of 2) 02/07/2014 Influenza Vaccine (#1) 2025 Pneumococcal vaccine <65 Aged Out No longer eligible based on patient's age to complete this topic Insurance [facility] BLUE ACCESS OOS BLUE ACCESS [place] BLUE ACCESS OOS [employer] OOS Member Subscriber Plan / Payer (Ef fective 2013-Present) Name:Sandy Mcintyre Relation to Subscriber:Self Name:Sandy Mcintyre Payer ID:[id number] (NAIC) Type:[employer] Address: [id number] [place] [phone] Care Teams Primary Education Professor Relationship Specialty Start Date End Date Unknown, Notinfile PCP - General 12/01/24
[2025-07-11 11:40] LABS: Hematocrit 34.4 % (42.0-52.0); Hemoglobin 10.8 g/dL (14.0-18.0); Immature Granulocyte Percent A 0.4 % (0-0.5); Lymphocytes Absolute Auto 2.61 K/mm3 (0.9-3.2); Mean Corpuscular HGB Conc 31.4 g/dl (32-36); Mean Corpuscular Hemoglobin 26.9 pg (26-34); Mean Corpuscular Volume 85.8 fl (80-100); Nucleated Red Blood Cells Absolute Auto 0.000 K/mm3 (0.0-0.012); Nucleated Red Blood Cells Perc 0.0 % (0.0-0.2); Platelet Count Result 383 k/mm3 (150-375); Red Blood Count 4.01 M/mm3 (4.6-6.20); White Blood Count 8.5 K/mm3 (4.5-10.0)
[2025-07-11 11:43] LABS: Add Urine Microscopic? YES; Appearance Urine Cloudy (Clear); Glucose Urine UA Negative (Negative); Leukocyte Esterase Ur Trace LEU/UL (Negative); Nitrate Urine Negative (Negative); Non Pathogenic Casts 0-2; Specific Grav Ur 1.030 (1.001-1.035)
[2025-07-11 12:07] LABS: INR 1.1; Prothrombin Time 14.2 Seconds (11.1-14.7)
[2025-07-11 12:08] LABS: Cholesterol 96 mg/dL (0-200); HDL Direct 43 mg/dL; Partial Thromboplastin Time 28.6 Seconds (22.3-36.8); Triglycerides 58 mg/dL (<150)
[2025-07-11 12:39] LABS: Hemoglobin A1C 8.6 % (<5.7)
[2025-07-11 12:41] LABS: Hepatitis B Surface Antigen Negative (Negative)
[2025-07-11 12:46] LABS: HAV RESULT Negative (Negative); Hepatitis B Core IgM Result Negative (Negative)
[2025-07-11 12:49] LABS: HIV 1/2 Ab P24 Ag Result Negative (Negative)
[2025-07-11 13:02] LABS: Vitamin B12 720.0 pg/mL (239-931)
[2025-07-14 12:08] LABS: Comment Notes (.); Interpretation Notes (.)
== END 2025-07-11 08:44 | disposition home or self-care (01) ==
PROVIDERS: PCP Student in an Organized Health Care Education/Training Program; Visit Provider Student in an Organized Health Care Education/Training Program
DX: Z01.818 Encounter for other preprocedural examination (principal); R94.31 Abnormal electrocardiogram [ECG] [EKG]; E11.69 Type 2 diabetes mellitus with other specified complication; D64.9 Anemia, unspecified; E66.9 Obesity, unspecified; R53.83 Other fatigue
CPT/HCPCS: 36415; 78452; 80061; 80074; 81001; 82306; 82607; 83036; 85025; 85610; 85652; 85730; 86703; 86790; 87086; 93017; A9502; G0432; J2785

== ENCOUNTER 2025-07-28 09:23 | Outpatient (CLI) | payer BC, SELFPAY ==
[2025-07-28 11:21] LABS: Iron 38 ug/dL (49-181)
[2025-07-28 11:28] LABS: Alanine Aminotransferase 32 U/L (6-50); Albumin Level 4.1 g/dL (3.5-5.1); Alkaline Phosphatase 95 U/L (38-126); Anion Gap 8 mmol/L (4-12); Aspartate Amino Transferase 50 U/L (17-59); Bilirubin,Total 0.5 mg/dL (0.2-1.3); Blood Urea Nitrogen 15 mg/dL (9-20); Calcium 9.4 mg/dL (8.4-10.2); Carbon Dioxide 28 mmol/L (22-30); Chloride 102 mmol/L (98-107); Estimated Glomerular Filt Rate > 60; Glucose 153 mg/dL (65-110); Potassium 4.7 mmol/L (3.4-5.0); Sodium 138 mmol/L (137-145); Total Protein 7.3 g/dL (6.3-8.2)
[2025-07-28 11:33] LABS: MALB Creatinine Ratio 6.0 mg/g (0-30)
[2025-07-28 11:39] LABS: Percent Iron Saturation 9 % (20-50)
[2025-07-28 12:02] LABS: Ferritin 5.92 ng/mL (11.1-264)
[2025-07-28 12:04] LABS: Prostate Specific Antigen 0.6 ng/mL (< OR = 4.0); Thyroid Stimulating Hormone 1.710 uIU/mL (0.465-4.680)
== END 2025-07-28 09:24 | disposition home or self-care (01) ==
LOC: ANHGOSHLAB 09:24
PROVIDERS: PCP Student in an Organized Health Care Education/Training Program; Visit Provider Student in an Organized Health Care Education/Training Program
DX: Z12.5 Encounter for screening for malignant neoplasm of prostate (principal); D50.8 Other iron deficiency anemias; E11.69 Type 2 diabetes mellitus with other specified complication; E66.9 Obesity, unspecified
CPT/HCPCS: 36415; 80053; 82043; 82728; 83540; 83550; 84153; 84443; G0103

== ENCOUNTER 2025-09-22 10:29 | Outpatient (CLI) | payer BC, SELFPAY ==
--- OUTSIDE RECORDS SUMMARY | 2025-09-22 11:38 | XMS_ITS | Encounter Summary ---
Author Organization [facility] Address [address] [place] [address] Phone Care Team Providers Care Hand Binder Cutter Name Role Phone James Hugo MD Primary Care Provider [phone]- [phone] Encounter Details Date Type Department Care Team (Latest Contact Info) Description 02/14/2022 [facility] Admitting [address] [place] [phone] Jay Khan MD [address] [place] [address] Anemia, unspecified type (Primary Dx) Social History [...] Primary documented in this encounter Care Teams Hand Binder Cutter Relationship Specialty Start Date End Date James Hugo MD [address] [place] [address] PCP - General Family Medicine 02/12/22 documented as of this encounter
--- OUTSIDE RECORDS SUMMARY | 2025-09-22 11:38 | XMS_ITS | Clinical Summary ---
Author Organization [facility] [address] Address [address] [place] [address] Care Team Providers Care Rehabilitation Physician Name Role Phone Unknown, Notinfile Primary Care [...] on file Legal Sex Male 4:40 AM PROJECT ESTIMATOR Gender Identity Not on file Sexual Orientation Not on file Last Filed Vital Signs Vital Sign Reading Time Taken Comments Blood Pressure 157/83 12/14/2024 1:37 PM PROJECT ESTIMATOR Pulse 58 12/14/2024 1:37 PM PROJECT ESTIMATOR Temperature 36.3 C (97.4 F) 12/14/2024 1:37 PM PROJECT ESTIMATOR Respiratory Rate 18 12/14/2024 1:37 PM PROJECT ESTIMATOR Oxygen Saturation 94% 12/14/2024 1:37 PM PROJECT ESTIMATOR Inhaled Oxygen Concentration - - Weight 119.2 kg (262 lb 12.6 oz) 12/14/2024 7:25 AM PROJECT ESTIMATOR Height 185.4 cm (6' 1) 12/14/2024 7:25 AM PROJECT ESTIMATOR Body Mass Index 34.67 12/14/2024 7:25 AM PROJECT ESTIMATOR Plan of Treatment Health Maintenance Due Date [...] patient's age to complete this topic Insurance [facility] BLUE ACCESS OOS BLUE ACCESS [place] BLUE ACCESS OOS [place] OOS Member Subscriber Plan / Payer (Ef fective 2013-Present) Name:Sandy Mcintyre Relation to Subscriber:Self Name:Sandy Mcintyre Payer ID:[id number] (NAIC) Type:[employer] Address: [address] [place] [id number] Care Teams Rehabilitation Physician Relationship Specialty Start Date End Date Unknown, Notinfile PCP - General 12/01/24
--- OUTSIDE RECORDS SUMMARY | 2025-09-22 11:38 | XMS_ITS | Clinical Summary ---
Author Organization [facility] Address [address] [address] [place] [address] Phone Care Team Providers Care Drive Tester Name Role Phone Osman, External Provider Primary [...] 60 mL 280 mL 10/04/2019 4:41 PM SCHOOL CAFETERIA HEAD COOK 9 Active lisinopriL (PRINIVIL) 10 mg tablet Take 1 Tablet by mouth every 24 hours. Active Active Problems No known active problems Social History Tobacco Use Types Packs/Day Years [...] 06/11/2024 6:46 AM CDT Plan of Treatment Upcoming Encounters Date Type Department Care Team (Late st Contact Info) Description 10/24/2025 1:30 PM SCHOOL [employer]OOK Office Visit [facility] [place] [address] [place] [address] [facility] [address] [place] [address] Fransisco Rey MD [address] [facility] [address] [place] [address] Health Maintenance Due Date Last Done Comments [...] series) 02/07/2039 Medical Devices Implanted Type Area Installation Coordinator Device Identifier Shelf Expiration Date Model / Serial / Lot Lu Silver [id number] - Csc - [id number] Implanted:Qty: 2 on 10/04/2019 by Kendall Lee MD at [facility] [employer] TELEFLEX- WECK CLOSURE SYS [id number] / / Procedures Procedure Name Priority Date/Time Associated Diagnosis Comments COLONOSCOPY REPORT 01/29/2019 12 :17 PM CDT from Last 3 Months or Most Recently Relevant to Health Maintenance Results * COLONOSCOPY REPORT (01/29/2019 12:17 PM CDT) Narrative Procedure Note Kendall Lee MD - 01/29/2019 12:17 PM CDT [facility] Endoscopy Patient Name: Sandy Mcintyre Procedure Date: [...] screening purposes. Procedure Code(s): --- Professional --- 94737, Colonoscopy, flexible; diagnostic, including collection of specimen(s) by brushing or washing, when performed (separate procedure) CPT copyright 2016 [employer]. All rights reserved. The codes documented in this report are preliminary and upon bottom saw operator review may be revised to meet current compliance requirements. Kendall Lee MD 01/29/2019 12:17:47 PM Number of Addenda: [phone] [place] [address] Kendall Lee MD GI PROCEDURE ORDERABLES Fi nal Result from Last 3 Months or Most Recently Relevant to Health Maintenance Insurance [employer]/TRUE BLUE PPO [employer]/TRUE BLUE PPO RX EXPRESS S[employer]IP[employer] Express RX [facility] [employer] BLUE ACCESS/TRUE BLUE PPO [employer] BLUE ACCESS/TRUE BLUE PPO Advance Directives For more information, please contact: [phone] * Full Code (Latest Code Status on File) Date Activated Date Inactivated Comments 10/04/2019 11:42 AM 10/04/2019 7:57 PM * Full Code Date Activated Date Inactivated Comments 01/07/2019 11:32 AM 01/07/2019 4:58 PM * Full Code Date Activated Date Inactivated Comments 12/17/2018 1:07 PM 12/17/2018 6:[address]ester Relationship Specialty Start Date End Date Osman, External Provider PCP - General 12/15/18
--- OUTSIDE RECORDS SUMMARY | 2025-09-22 11:38 | XMS_ITS | Clinical Summary ---
Author Organization [facility] Address [address] [place] [address] Phone Care Team Providers Care Liaison Planner Name Role Phone James Hugo MD Primary Care Provider [phone] Social History Tobacco Use Types Packs/Day Years [...] Immunization (#1) 2025 SARS-COV-2 Immunization ( - 2024- season) 2025 Respiratory Syncytial Virus (RSV) Immunization [...] age to complete this topic Care Teams Liaison Planner Relationship Specialty Start Date End Date James Hugo MD [address] [place] [address] PCP - General Family Medicine 02/12/22
[2025-09-22 13:11] LABS: Iron 33 ug/dL (49-181)
[2025-09-22 13:23] LABS: Percent Iron Saturation 8 % (20-50)
[2025-09-22 13:53] LABS: Ferritin 5.43 ng/mL (11.1-264)
== END 2025-09-22 10:30 | disposition home or self-care (01) ==
LOC: ANHLAB 10:30
PROVIDERS: PCP Student in an Organized Health Care Education/Training Program; Visit Provider Student in an Organized Health Care Education/Training Program
DX: D50.9 Iron deficiency anemia, unspecified (principal)
CPT/HCPCS: 36415; 82728; 83540; 83550